=== PATIENT | male | born 1940 | race Caucasian/White ===

== ENCOUNTER → 2019-04-27 | Outpatient (CLI) | payer MEDICARE ==
--- NOTE | 2019-04-27 10:06 | RADIOLOGY REPORT (SQ) ---
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 TECHNIQUE: Videofluoroscopic swallowing examination was performed in conjunction with speech patholo gy. Videofluoroscopic imaging was obtained and reviewed and these are the findings: RADIATION DOSE: Fluoro time 2.10 minutes 2 images saved to PACS. LIMITATIONS: None FINDINGS: The patient was brought into the fluoro room and placed upright on a modified barium swall ow chair. The patient was then given multiple consistencies mixed with barium to swallow under live fluoroscopic video guidance. According to the Speech Pathologist there was penetration seen from res iduals on subsequent swallows. No aspiration identified. Please refer to the speech pathology report for further details. IMPRESSION: LARYNGEAL PENETRATION WITHOUT ASPIRATION SEEN FROM RESIDUALS. PLEASE SEE SPEECH PATHOLOG IST REPORT FOR OTHER FINDINGS AND RECOMMENDATIONS. COMMENT: None Quality ID [id number]: Final reports for procedures using fluoroscopy that document radiation exposure sara nolvia, or exposure time and number of fluorographic images (if radiation exposure indices are not avail able) TECHNICAL DOCUMENTATION: JOB ID: [id number] [employer]- All Rights Reserved Reading location - IP/workstation name: [email or web address] [id number]
--- NOTE | 2019-04-27 17:13 | ST Modified Barium Swallow ---
Recommendation - Recommendations Recommendations: Recommend patient resume PO diet. Patient demonstrated safe swallowing of all trial textures. However, as patient has been NPO for over a month, may wish to resume PO diet slowly, starting with softer foods. Recommend following up with home health speech therapy for additional strategies. 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 - ICD-10 Tx Diagnosis Coding (1) Dysarthria following cerebral infarction ICD-10 Code(s): I69.322 - DYSARTHRIA FOLLOWING CEREBRAL INFARCTION (2) Dysphagia ICD-10 Code(s): R13.10 - DYSPHAGIA, UNSPECIFIED ST Modified Barium Swallow - General Date: 04/27/19 Referring Physician: Dr. Mayur Gracia Risks/Precautions: Aspiration Date of Onset: 03/10/19 Reason for Referral: dysphagia following CVA - History History obtained from: Patient -: Medical - Patient accompanied by his son, both provided history. Patient reportedly had a CVA on March 10, 2019. Patient reports that he has been NPO since that time. Initially had an NG tube, then PEG placed so that he could discharge. Patient reportedly had a MBSS in the hospital in [place], unable to report specific findings, but states that he wasn't allowed to eat. Patient has been receiving home health speech therapy for speech and swallowing. Medications: per patient report: blood thinner Allergies: none reported - Functional Status Prior Functional Status: INDEPENDENT: feeding - no restrictions prior to CVA Current Functional Limitations: feeding - PEG dependent - Subjective Patient/caregiver goal(s): safe swallow Cognitive-Linguistic Function: Functional Speech Intelligibility: Mildly dysarthric Current Nutritional Means: NPO, PEG Current PO diet: N/A (NPO) Current symptoms: other - history of dysphagia following CVA Pain: Patient reports, 0/5 - Objective Assessment: Upright, Left Lateral - Food Trials Used Food trials used: Thin liquids, Pureed, Regular The patient: Was Able to Self Feed - Oral-Motor Skills Velo-pharyngeal function: Unremarkable Laryngeal Function: clear voicing - Assessment Oral prep: Normal Labial closure: Adequate Leakage: None Mastication: Adequate Lingual Movement: Normal Oral stage: Normal for this Procedure - Pharyngeal Stage Initiation of Pharyngeal Stage Reflex: Normal Decreased laryngeal elevation: No Reduced Velopharyngeal Closure: no Reduced pressure generation: Yes - mild reduced tongue-based retraction: No Pre-swallow pooling in valleculae: None Pre-Swallow pooling in pyriforms: None Reduced Thyro-Hyoid approximation: Yes - mild Reduced epiglottic excursion: No Reduced pharyngeal peristalsis/contraction: Yes - mild Multiple Swallows with: Cleared w/ Dry Swallow Post-swallow residulas vallecular: Mild Post-Swallow residuals in pyriforms: None Post-Swallow Residuals: tongue-base Reduced Cricopharyngeal opening: No - Fall Risk Assessment Medications/Conditions that increase fall risks include: Antidepressants, sedatives, anti-arrhythmic, diuretic, benzodiazipenes, neuroleptics. BP regulation problems, cardiac problems, balance or gait deficits, neurological problems. Fall Risk Actions Taken: No action needed - Behavioral Observations During evaluation process patient: was pleasant, was cooperative, able to answer questions - Treatment / Educational Needs: Treatment/Education Needs: Treatment consisted of patient education on the role of the Speech Pathologist. Patient's plan of care and golas were communicated as well as scheduling and attendance policies. Recommendations for initial home program were shared. Patient demonstrated understanding and verbalized agreement. - Impression/Summary Laryngeal Penetration: Yes - penetration seen on thin liquids only when sequential swallows were seen Tracheal Aspiration: no Patient presents with: Pharyngeal stage dysph., Mild-Moderate Risk of Aspiration: Minimal Evaluation and Findings: Mild risk of aspiration on PO intake, mild pharyngeal dysphagia seen characterized by penetration of thin liquids on sequential swallows without aspiration, and pharyngeal residue seen after the swallow with solids. Residue cleared with dry swallow, however, patient required verbal cue to swallow a second time. - Recommendations Solid diet recommendations: Regular Liquid Diet Modification: Thin Strict aspiration precautions: Yes Pt/Family education and followup with MD: Yes Dysphagia therapy with [employer]IST: f/u with current thera. Recommended techniques: Fully Upright During Meal, Small Bites and Sips, Alternate Bites/Sips Supervision: Distant Information, Precautions and Recommendations: Patient (Written), Patient (Verbal), Family Member (Written), Family Member (Verbal) - Time Total Time: 30 - Plan of Care Strategies to optimize patient understanding include:: ongoing assessment of educational needs, implementation of educational strategies, and re-education. - - -: Thank you for the opportunity to work with this patient and his/her family. Should you have any questions about this patient's plan or progress, I can be reached at [phone].
== END ==
LOC: RAD 07:41
PROVIDERS: ATTEND Family Medicine
DX: I69.391 Dysphagia following cerebral infarction (principal); R13.10 Dysphagia, unspecified; I69.322 Dysarthria following cerebral infarction
CPT/HCPCS: 74230